=== PATIENT | female | born 1990 | race Caucasian/White ===

== ENCOUNTER 2017-12-16 12:17 | Inpatient (IN) | payer OTHER ==
--- NOTE | 2017-12-16 12:37 | EDPHY ---
HPI/HX/ROS/PE/MDM Narrative: CHIEF COMPLAINT: Psych evaluation HPI: The patient is a 27 y/o female with a history Major depressive disorder, rheumatoid arthritis, Bay's presenting to the emergency department for a psychiatric evaluation. She reports severe depression that has been worsening recently. Over the last few days she has developed suicidal ideation. She has no specific plan and no attempts made. She states that she is not currently under treatment for her Bay's thyroiditis, and is on stable doses of Humira and methotrexate for her rheumatoid arthritis. REVIEW OF SYSTEMS: Aside from elements discussed in the HPI, a comprehensive 10 system review of systems is otherwise negative. PMH: Major depressive disorder, rheumatoid arthritis, Bay's SOCIAL HISTORY: Denies alcohol or drug abuse. PHYSICAL EXAM: General: Patient is alert, in no acute distress. ENT: Eyes are normal to inspection. ENT inspection normal. Neck: Normal inspection. Full range of motion. Respiratory: No respiratory distress. Breath sounds normal bilaterally. Cardiovascular: Regular rate and rhythm. Strong peripheral pulses. Normal cap refill. Abdomen: The abdomen is nontender to palpation. There are no peritoneal signs. There are normal bowel sounds. Back: Normal to inspection. No tenderness to palpation. Skin: Normal color. No rash. Warm and dry. Extremities: Normal appearance. Full range of motion. Neuro: Oriented x3. Normal motor function. Normal sensory function. Psych: Tearful, pleasant. Admits to suicidal ideation. (Matthew Bro) ED Course: 1450: Patient is medically clear for psychiatric evaluation. I have signed the patient out to Dr. Lucero pending mental health evaluation. (Matthew Bro) MDM: 7:55 p.m. the patient has been evaluated by Mental Health and has been accepted at [address] [place] [address] Douglas. I have signed an M1 hold and will complete transfer paperwork. (Jose M Lucero) - Data Points Laboratory Results: Laboratory Results 12/16/17 13:13 12/16/17 13:13 Medications Given: Aspirin Buffered (Aspirin Ec) 81 mg PO DAILY [facility] Stop: 06/15/18 08:59 Last Admin: 12/17/17 09:13 Dose: 81 mg Cholecalciferol (Vitamin D) 2,000 units PO DAILY [facility]ON Stop: 06/15/18 08:59 Last Admin: 09/13/18 09:13 Dose: 2,000 units Hydroxyzine HCl (Hydroxyzine Hcl) 100 mg PO HS [facility] Stop: 06/14/18 23:44 Last Admin: 12/16/17 23:46 Dose: 100 mg Sertraline HCl (Zoloft) 100 mg PO DAILY [facility] Stop: 06/15/18 08:59 Last Admin: 12/17/17 09:13 Dose: 100 mg General Time Seen by Provider: 12/16/17 12:31 Initial Vital Signs: Initial Vital Signs Temperature (C) 36.8 C 12/16/17 12:24 Heart Rate 110 H 12/16/17 12:24 Respiratory Rate 18 12/16/17 12:24 Blood Pressure 130/89 H 12/16/17 12:24 O2 Sat (%) 95 12/16/17 12:24 O2 Delivery Mode Room Air Allergies/Adverse Reactions: No Known Allergies Allergy (Unverified 12/16/17 12:22) Home Medications: Medication Instructions Recorded Adalimumab [Humira] 40 mg INJ Q14D 12/16/17 Aspirin EC [Aspirin EC 81 mg (*)] 81 mg PO DAILY 12/16/17 Cholecalciferol Vit D3 [Vitamin D3 2,000 units PO DAILY 12/16/17 (*)] Dextroamphetamine/Amphetamine 30 mg PO DAILY 12/16/17 [Adderall Xr 30 mg Capsule] Kurvelo Control 1 ea PO DAILY 12/16/17 Methotrexate Sodium [Rheumatrex] 20 mg PO TH 12/16/17 Sertraline HCl [Zoloft 100mg (*)] 100 mg PO DAILY 12/16/17 hydrOXYzine HCL [Hydroxyzine HCl] 150 mg PO HS 12/16/17 Departure - Departure Disposition: [facility] IP Clinical Impression: Suicidal ideation Condition: Fair Report Scribed for: Matthew Bro Report Scribed by: Rita Willis Date of Report: 12/16/17 Time of Report: 12:34 Physician Review and Approval Statement: Portions of this note were transcribed by an ED scribe. I personally performed the history, physical exam, and medical decision making; and confirm the accuracy of the information in the transcribed note.
[2017-12-16 13:35] LABS: PLATELET COUNT 335 10^3/uL (150-400)
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
--- NOTE | 2017-12-16 22:26 | ASMTTCLDSP ---
TLC Discharge Disposition Disposition: Answers: Admit Disposition Notes: Notes: In consultation with [facility] ED physician, Jose M Lucero MD and [facility] on-call psychiatrist, Jacob Douglas MD, both concurred that pt appears to meet 27-65 criteria requiring psychiatric hospitalization as the patient appears to be an imminent risk of harm to self due to a mental illness condition. The patient was given the 3N prohibited belongings list while in the ED. Was patient given the Answers: Yes Inpatient Behavioral Health Prohibited Belongings List while in the ED? For inpatient Jacob Douglas MD admission, the following psychiatrist agreed to accept patient for admission to Behavioral Health ([facility]): Type of Hold: Answers: M1/72-hour Hold Hold initiated by: Answers: ED Physician Date Signed: 12/16/2017 09:57 PM Electronically Signed By:Gemma Jacobs
[2017-12-16] MEDS ORDERED: OLANZapine DISINTEGR 5 MG TAB PO PRN (23:32)
[2017-12-16] MEDS ORDERED: NICOTINE POLACRILEX 2 MG GUM B PRN (23:32)
[2017-12-16] MEDS ORDERED: LORazepam 0.5 MG TAB PO PRN (23:32)
[2017-12-16] MEDS ORDERED: MAGNESIUM HYDROXIDE 30 ML UDCUP PO PRN (23:32)
[2017-12-16] MEDS ORDERED: MAG HYDROX/AL HYDROX/SIMETH 30 ML UDCUP PO PRN (23:32)
[2017-12-16] MEDS ORDERED: ACETAMINOPHEN 325 MG TAB PO PRN (23:32)
[2017-12-16] MEDS ORDERED: MELATONIN 3 MG TAB PO PRN (23:38)
[2017-12-16] MEDS ORDERED: hydrOXYzine HCL 50 MG TAB PO SCH (23:45)
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
[2017-12-17] MEDS ORDERED: SERTRALINE HCL 100 MG TAB PO SCH (09:00)
[2017-12-17] MEDS: ASPIRIN EC 81 MG TAB PO SCH (09:13)
[2017-12-17] MEDS: CHOLECALCIFEROL VIT D3 2,000 UNITS TAB/CAP PO SCH (09:13)
--- NOTE | 2017-12-17 11:23 | PDMN ---
Medical Necessity Medical necessity: Pt meets inpt criteria per MD order and [facility] [place] [place] B-008, Major Depressive Disorder, Adult: Inpatient Care. 27 y/o w/major depressive disorder, recurrent, severe, w/suicidal ideation, on M1 hold due to risk of harm to self due to mental illness requiring psychiatric hospitalization.
[2017-12-17] MEDS: ARIPiprazole 5 MG TAB PO SCH (12:12)
[2017-12-17] MEDS: ADALIMUMAB 40 MG/0.8 ML INJ SC SCH ×2 (12:13→20:39)
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
--- NOTE | 2017-12-17 13:43 | ASMTCMCOM ---
CM Note CM Note Notes: CC called and left a detailed VM for client's Doctor/Therapist (Dr. Bahman Catalan) at [phone]; asking for a follow up appt for client late next week. Date Signed: 12/17/2017 01:27 PM Electronically Signed By:Darren Bowen
[2017-12-17] MEDS ORDERED: BACITRACIN OINTMENT 1 PACKET TP ONE (14:26)
--- NOTE | 2017-12-17 15:12 | BCON ---
INTERNAL MEDICINE CONSULTATION DATE OF CONSULTATION: 12/17/2017 REFERRING PHYSICIAN: Jacob Douglas MD REASON FOR REFERRAL: Medical clearance for inpatient behavioral health stay. HISTORY OF PRESENT ILLNESS: This patient came to the emergency department yesterday with severe depression, which had been worsening recently. She had developed suicidal ideation. She was evaluated by the mental health team and admitted for further psychiatric care. Currently, she reports feeling stiffness from her from rheumatoid arthritis. She reports she has been unable to take adalimumab for several weeks due to upper respiratory infection. Otherwise, she is without acute complaints. PAST MEDICAL HISTORY: 1. Depression. 2. Rheumatoid arthritis. 3. Bay's thyroiditis. PAST SURGICAL HISTORY: She has not had any surgeries. MEDICATIONS: Prior to admission: 1. Cholecalciferol 2000 units p.o. daily. 2. Aspirin 81 mg p.o. daily. 3. control pill. 4. Dextroamphetamine/amphetamine 30 mg p.o. daily. 5. Adalimumab 40 mg injection every 14 days. 6. Hydroxyzine 150 mg p.o. at bedtime. 7. Methotrexate 20 mg p.o. q. . 8. Sertraline 100 mg p.o. daily. ALLERGIES: There are no known drug allergies. SOCIAL HISTORY: She lives with her parents. She is nonsmoker and does not use alcohol. 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 She had the recent break-up of a relationship which precipitated her moving back in to her parent's house. FAMILY HISTORY: Noncontributory. REVIEW OF SYSTEMS: She reports her upper respiratory symptoms are improving, but she says she still has symptoms of seasonal allergies. She has joint stiffness, as mentioned previously. Otherwise, a 10-point review of systems is negative. PHYSICAL EXAM: VITAL SIGNS: Blood pressure is 109/63, heart rate is 74, respiratory rate is 14, oxygen saturation 96% on room air, temperature is 36.7 degrees centigrade. Her weight is 65.8 kg for a body mass index of 28.3. GENERAL: This is an overweight woman, appears her chronologic age, cooperative and in no acute distress. HEENT: Extraocular movements are intact. Pupils are equal, round, reactive to light. Mucous membranes are moist. Dentition is good condition. NECK: Supple. HEART: Regular rate and rhythm with no murmurs , rubs, or gallops. LUNGS: Clear to auscultation bilaterally. ABDOMEN: Benign. EXTREMITIES: There is no cyanosis, clubbing, or edema. There is no ulnar deviation at the MCP joints. There is no obvious joint swelling. NEUROLOGIC: She is alert and oriented x3. Cranial nerves 2-12 are grossly intact. There is no focal weakness. Sensation is intact and gait is within normal limits. LABORATORY STUDIES: CBC was completely normal. Serum chemistry revealed normal renal function and electrolytes. Liver function showed very mild elevation to ALT, likely of no clinical significance. Lipid panel was consistent with dyslipidemia with elevated cholesterol of 234, LDL was 159, HDL was 50. TSH was 1.11. Toxicology screen in the urine was non-negative for amphetamines, but was otherwise negative for substances of abuse. ASSESSMENT/RECOMMENDATIONS: 1. Rheumatoid arthritis overall has been quiescent. She has somewhat more disease activity currently, due to abstaining from her regular adalimumab treatment due to an upper respiratory infection. Advised continuing methotrexate as currently ordered. Resume adalimumab once she is completely cleared from any symptoms of infection. 2. Upper respiratory infection is resolving. 3. Seasonal allergies versus resolving URI symptoms. 4. Dyslipidemia. Based on her age and lack of significant comorbidities, there is no indication at present to start cholesterol-reducing medications. 5. Overweight. Consider avoiding medications which might promote further weight gain, especially with dyslipidemia. Advised patient on high-intensity interval training, which can both increase physical fitness and aerobic capacity , as well as decreasing rheumatoid arthritis disease activity. 6. Bay thyroiditis, with normal TSH. There is no intervention or further evaluation indicated at this point. I see no medical contraindications to this patient's continued stay on the inpatient behavioral health unit or to any psychiatric medications or procedures. Thank you very much for including me in the care of this patient and please do not hesitate to contact me or the hospitalist service should there be need for further medical evaluation. /[id number]/MODL MTDD
[2017-12-17] MEDS: GABAPENTIN 300 MG CAP PO SCH ×2 (15:46→20:33)
[2017-12-17] MEDS: traZODone 50 MG TAB PO SCH (20:34)
[2017-12-17] MEDS: ETHINYL ESTRADIOL PO SCH (20:37)
[2017-12-17] MEDS: LEVONORGESTREL PO SCH (20:37)
[2017-12-17] MEDS ORDERED: METHOTREXATE 2.5 MG TAB PO SCH (21:00)
[2017-12-18] MEDS: ARIPiprazole 5 MG TAB PO SCH (08:56)
[2017-12-18] MEDS: GABAPENTIN 300 MG CAP PO SCH ×3 (08:56→21:32)
[2017-12-18] MEDS: ASPIRIN EC 81 MG TAB PO SCH (08:56)
[2017-12-18] MEDS: CHOLECALCIFEROL VIT D3 2,000 UNITS TAB/CAP PO SCH (08:57)
[2017-12-18] MEDS ORDERED: SERTRALINE HCL 100 MG TAB PO SCH (09:00)
[2017-12-18] MEDS ORDERED: SERTRALINE HCL 50 MG TAB PO ONE (09:15)
[2017-12-18] MEDS: LEVONORGESTREL PO SCH (09:27)
[2017-12-18] MEDS: ETHINYL ESTRADIOL PO SCH (09:27)
--- NOTE | 2017-12-18 11:00 | SOAPPROG ---
SOAP Progress Note Assessment/Plan: Assessment: Borderline personality disorder, major depressive disorder with anxious distress , refractory. Slight improvement noted. (see subjective/objective note). Patient is not safe to discharge at this time as patient continues to exhibit signs of severe anxiety and depression, and express anxiety and depression symptoms. Patient requires continued inpatient care because of current severe anxiety and depression, and requires inpatient level of care to stabilize in order to no longer be a danger to himself/herself, gravely disabled due to mental illness. Patient could benefit from continued inpatient hospitalization for crisis stabilization, safety, and medication evaluation. Plan: (1) Psychotropic medications: After reviewing options, risks, and benefits patient agrees to continue current medications with following changes: Increase sertraline to 100 mg po QD. No other medication changes at this time as more time is needed to determine ongoing tolerability and efficacy. Plan is to continue to observe patient for response and side effects from medications, and ongoing monitoring and evaluation. (2) Review with patient informed consent and recommendations for psychotropic medication treatment listed below (3) Labs: no additional labs at this time (4) Therapy: continue milieu and group therapy (5) Further investigation including gathering information from patients relatives and review of past case records to inform treatment plan. (6) Safety/Wellness plan and follow-up outpatient appointments to be established prior to discharge. Next steps are for patient to meet with personal caregiver to plan a safe discharge plan and establish outpatient services for ongoing treatment. (7) Confer with inpatient treatment team regarding treatment plan. (8) Legal status: M1; patient agrees to voluntary when M1 expires (9) Consider discharge on Thursday if patient is in stable condition, safe, and has a safe discharge plan. PSYCHOTROPIC MEDICATION TREATMENT INFORMED CONSENT and RECOMMENDATIONS: Review nature of condition, diagnosis, and prognosis. Review nature and purpose of psychotropic medication treatment. Review type of psychotropic medications being ordered. Review risk and benefits of psychotropic medication treatment. Review probable length of time patient will need to take medications. Review risk and benefits of not undergoing psychotropic medication treatment. Review alternative treatments to psychotropic medications. Review psychotropic medications contraindications, drug-drug interactions, side effects, and importance of reporting any side effects to a psychiatric provider or nurse during inpatient hospitalization, and upon discharge to patients psychiatric outpatient provider, primary care provider, or other health weekend caregiver. Review importance of asking a nurse, psychiatric provider, or primary care provider any questions or problems concerning the psychotropic medications. Verify patient understands the information that has been provided, and understands, accepts, and agrees to psychotropic medications. Review patients safety plan and importance of patient to report to staff while hospitalized if patient is ever a danger to self/others, or unable to care for self, and upon discharge, the importance for patient to contact [facility] or [facility], or go to the nearest emergency room, if patient is ever a danger to self/others, or unable to care for self. Recommend that upon discharge patient establish medication management treatment with a psychiatric provider, establishes routine therapy appointments, and follow-up with primary care provider. Verify patient understands and agrees to these recommendations. 12/18/17 10:59 Subjective: Following up with patient for evaluation of depression, anxiety, and safety. Patient reports, "I would have slept okay, if I wasn't woken-up by another patient, I threw-up this morning because of my anxiety. I don't have any suicidal thoughts today though. I still feel extremely depressed. Can we go back up on the sertraline, I am worried that the other medications wont work fast enough if we stop the sertraline." Patient expresses the following psychiatric symptoms severe anxiety and depression. Patient reports taking medications as prescribed, and describes response to medications as poor. Patient requests increase in sertraline and agrees to 100 mg po QD, and agrees to continue current medications. Patient does not report undesirable side effects from the medications. Patient reports appetite as okay, and reports eating all meals. Patient describes getting 6 hours of sleep. Patient agrees to stay voluntary through with plan to discharge Thursday. Objective: Vital Signs Temp Pulse Resp BP Pulse Ox 37 C 84 16 110/63 96 12/18/17 06:00 12/18/17 06:00 12/18/17 06:00 12/18/17 06:00 12/18/17 06:00 NURSING REPORT: Consulted with nursing for update on patients progress in treatment. Nurses report patient is engaged in treatment, is attending groups, slept 9 hours, expresses the following psychiatric symptoms: severe anxiety and depression, exhibits the following psychiatric symptoms: anxiety and depression , is eating all meals, is attending to ADLs, is taking medications as prescribed with no report of side effects, with no s/s of EPS/akathisia, and denies SI/HI, denies A/V hallucinations, and denies delusions. MSE: The patient presents casually dressed and with good hygiene, and looks stated age. Patient is sitting, posture is upright, and position is relaxed. Patient appears awake, alert, and responds appropriately and reasonably during interview. Patient is engaged, relates well to interviewer, and emotional facial expression is sad/anxious appropriate to situation and changes appropriately with topic. Patient is cooperative, makes comfortable eye contact , and movements are voluntary, deliberate, coordinated, and smooth and even with no inappropriate movements. Patient makes laryngeal sounds effortlessly and shares conversation appropriately; pace of conversation is appropriate, and stream of talking is fluent; articulation is clear and understandable; word choice is effortless and appropriate for education level; completes sentences, occasionally pausing to think; rate and volume are appropriate for interview and setting. Patient reports mood as anxious and depressed. Patients affect is constricted and flat congruent with mood. Patient has linear and logical thinking, with no loose associations, tangential thought, thought blocking, concrete thinking, or any other signs of formal thought disorder. Patient denies suicidal and homicidal ideation, and denies hallucinations and delusions. Patient appears to be a reliable historian with sound judgement and good insight into current condition. Patient has no apparent dysfunction in recent or remote memory noted, and no evidence of gross cognitive dysfunction noted at any point during the interview. - Time Spent With Patient Time Spent With Patient: 30 minutes, met with patient individually and with patient and treatment team. - Pending Discharge Pending Discharge Within 24 Hours: No Pending Discharge Within 48 Hours: No ICD10 Worksheet Patient Problems: Problems Problem Status Onset Suicidal ideation Acute Borderline personality disorder Chronic Major depressive disorder, recurrent episode, severe with anxious distress Chronic
--- NOTE | 2017-12-18 11:52 | ASMTCMCOM ---
CM Note CM Note Notes: Pt. reported she "didn't sleep as well as I wanted". Pt. stated a male peer pt. accidentally walked into her room at night. Pt. stated she is "pretty anxious in general". Pt. stated the best way she deals with her anxiety is through distraction. Pt. stated she likes to draw, watch TV, play video games, listen to music, and do puzzles. Pt. reports not having an appetite, adding she forces herself to eat. Pt. stated she threw up this morning from her anxiety. Pt. rated her anxiety an 8/10 while in the hospital, adding her anxiety is a 10/10 at home. Pt. denied SI, HI, and AVH. Pt. stated she has paranoia about "feeling like when I get out of here people will think I'm crazy". Pt. presents as alert, anxious, staring eye contact, and with a mostly pleasant demeanor. Staff report pt. sleeping 9 hours and being medication compliant. Date Signed: 12/18/2017 11:43 AM Electronically Signed By:Alessia Hebert
[2017-12-18] MEDS: traZODone 50 MG TAB PO SCH (21:32)
[2017-12-18] MEDS ORDERED: diphenhydrAMINE 25 MG CAP PO ONE (21:48)
[2017-12-18] MEDS: diphenhydrAMINE 25 MG CAP PO PRN (22:15)
[2017-12-19] MEDS: ETHINYL ESTRADIOL PO SCH (08:33)
[2017-12-19] MEDS: ARIPiprazole 5 MG TAB PO SCH (08:33)
[2017-12-19] MEDS: LEVONORGESTREL PO SCH (08:33)
[2017-12-19] MEDS: CHOLECALCIFEROL VIT D3 2,000 UNITS TAB/CAP PO SCH (08:33)
[2017-12-19] MEDS: GABAPENTIN 300 MG CAP PO SCH ×3 (08:33→20:29)
[2017-12-19] MEDS: ASPIRIN EC 81 MG TAB PO SCH (08:33)
[2017-12-19] MEDS ORDERED: SERTRALINE HCL 100 MG TAB PO SCH (09:00)
[2017-12-19] MEDS: PSEUDOEPHEDRINE HCL 30 MG TAB PO PRN ×2 (09:30→17:35)
--- NOTE | 2017-12-19 13:46 | ASMTCMCOM ---
CM Note CM Note Notes: Pt. reports sleeping "not good at all", adding she needs more trazodone Pt. stated she kept waking up and wasn't able to sleep deeply. Pt. stated she currently feels sick and believes she has a cold. MD ordered medication. Pt. stated she is still forcing herself to eat, adding she ate more at breakfast today than her entire hospital stay so far. Pt. stated she doesn't feel her gabapentin dose is high enough. Pt. rated her anxiety an 8/10 today. Pt. stated "still feel anxious all the time". Pt. denied SI, HI, and AVH. Pt. reports having similar paranoia feelings as yesterday, adding she is "super worried I will get out of here and end up back in here". Pt. expressed interest in attending the [facility] DBT group, along with individual therapy. Pt. presents as alert, anxious, almost shaking, tearful, polite and with good eye contact. Staff report pt. sleeping 7.5 hours. Date Signed: 12/19/2017 01:45 PM Electronically Signed By:Alessia Hebert
--- NOTE | 2017-12-19 13:55 | SOAPPROG ---
SOAP Progress Note Assessment/Plan: Assessment: 27yo with MDD with anxious features, and Borderline personality d/o admitted on M-1 for depression and SI. This is first hospitalization. 12/19/17 16:34 staff report pt slept 7.5hr Pt reports feeling depressed, anxious, did not sleep well. asking for incr Trazodone. still feeling very easily emotional/tearful, states she knows some of her negative thoughts about herself are wrong but still gets emotional and feeling sorry for self, reports "abandonment issues" and expresses other insights into her coping and functioning, and her chronic low self esteem. Does state if she did not get hospitalized, she would have overdosed b/c felt very depressed and suicidal. Notes Fall and Winter times also increase her depression independently from her depressed baseline. Looking forward to starting DBT as outpatient to give her tools to manage her emotions. States Hydroxyzine was helpful for anxiety but not restarted this admission b/c QTc concerns. Agreeable to an EKG to check QTc. Also not feeling Gabapentin helpful, rather just a bit sedating. Liked effect of Adderall in past b/c helped with energy but understands concerns about this med and that this was not right med. Denies s/e to Abilify including any akathisia. Denies physical complaints. Reports being a spiritual person and wouldn't mind spiritual consult while here. Going through "mad at God stage". Attending groups, finds them helpful and talked about some skills she learned and insights gained. MSE: cooperative, good ec, nml speech, easily tearful and with depr/mildly anxious affect, congruent with stated mood. denies current SI, no thoughts to harm others. tp/tc- linear, goal directed with no AH/VH or other psychosis. i/j - seem intact. cognition intact. PLAN: incr zoloft to 150mg qam start tomorrow incr trazodone to 100mg qhs, with additional 50mg qhs prn if needed. if 150mg not helpful, may need alternative cont abilify 5mg qd for now. Reporting some mild URI sxs and congestion, requested benadryl last night, Dayquil today but sudafed on formulary. avoid sudafed at hs. monitor use check EKG, nonurgent spiritual/public health director consult at pt request wants to stay beyond Mon if her meds are not quite right, b/c doesn't want to end up back in hospital if d/c too soon. Objective: Vital Signs Temp Pulse Resp BP Pulse Ox 37 C 84 16 110/63 96 12/18/17 06:00 12/18/17 06:00 12/18/17 06:00 12/18/17 06:00 12/18/17 06:00 - Time Spent With Patient Time Spent With Patient: 35min - Pending Discharge Pending Discharge Within 24 Hours: No Pending Discharge Within 48 Hours: No ICD10 Worksheet Patient Problems: Problems Problem Status Onset Suicidal ideation Acute Borderline personality disorder Chronic Major depressive disorder, recurrent episode, severe with anxious distress Chronic
[2017-12-19] MEDS ORDERED: traZODone 100 MG TAB PO SCH (21:00)
[2017-12-20] MEDS: ETHINYL ESTRADIOL PO SCH (08:32)
[2017-12-20] MEDS: LEVONORGESTREL PO SCH (08:32)
[2017-12-20] MEDS: CHOLECALCIFEROL VIT D3 2,000 UNITS TAB/CAP PO SCH (08:33)
[2017-12-20] MEDS: GABAPENTIN 300 MG CAP PO SCH (08:34)
[2017-12-20] MEDS: ARIPiprazole 5 MG TAB PO SCH (08:34)
[2017-12-20] MEDS: ASPIRIN EC 81 MG TAB PO SCH (08:34)
[2017-12-20] MEDS: SERTRALINE HCL 100 MG TAB PO SCH (08:34)
[2017-12-20] MEDS: PSEUDOEPHEDRINE HCL 30 MG TAB PO PRN (08:46)
--- NOTE | 2017-12-20 13:07 | ASMTCMCOM ---
CM Note CM Note Notes: Pt. reports not feeling very good due to her cold. Pt. added she is also feeling anxious and she is not sure why. Pt. stated she is "not sleeping very good" due to her paranoia about someone coming into her room and hurting her at night. Pt. stated she woke up 7 times last night and toss and turned. Pt. stated the increase in trazodone "didn't do anything". Pt. reports possibly going back to a previous medication for anxiety and sleep. Pt. stated she didn't eat much, adding her stomach "feels full all the time". Pt. stated her gabapentin is no doing what it should, adding "I shouldn't be this anxious". Pt. stated she feel "discouraged" about her medications not being as effective as she would like. Pt. stated she may stay in the hospital until Thursday, adding "however long it take is how long it takes". Pt. denied SI, HI, and AVH. Pt. reports continued paranoia about returning home and not doing well and possibly needing to return to the hospital. Pt. stated she lives with her parents and her parents will manage her medications, just to be safe. Pt. stated she wants to attend the [facility] DBT group, and could do an intake on 12/23 or 12/24. Pt. presents as alert, anxious, shaking, somewhat pressured speech, groomed, and with good eye contact. Staff report pt. sleeping 7.5 hours. CC provided pt with DBT skills handout. Date Signed: 12/20/2017 01:07 PM Electronically Signed By:Alessia Hebert
--- NOTE | 2017-12-20 13:23 | SOAPPROG ---
SOAP Progress Note Assessment/Plan: Assessment: 27yo with MDD with anxious features, and Borderline personality d/o admitted on M-1 for depression and SI. This is first hospitalization. 12/19/17 16:34 staff report pt slept 7.5hr Pt reports feeling depressed, anxious, did not sleep well. asking for incr Trazodone. still feeling very easily emotional/tearful, states she knows some of her negative thoughts about herself are wrong but still gets emotional and feeling sorry for self, reports "abandonment issues" and expresses other insights into her coping and functioning, and her chronic low self esteem. Does state if she did not get hospitalized, she would have overdosed b/c felt very depressed and suicidal. Notes Fall and Winter times also increase her depression independently from her depressed baseline. Looking forward to starting DBT as outpatient to give her tools to manage her emotions. States Hydroxyzine was helpful for anxiety but not restarted this admission b/c QTc concerns. Agreeable to an EKG to check QTc. Also not feeling Gabapentin helpful, rather just a bit sedating. Liked effect of Adderall in past b/c helped with energy but understands concerns about this med and that this was not right med. Denies s/e to Abilify including any akathisia. Denies physical complaints. Reports being a spiritual person and wouldn't mind spiritual consult while here. Going through "mad at God stage". Attending groups, finds them helpful and talked about some skills she learned and insights gained. MSE: cooperative, good ec, nml speech, easily tearful and with depr/mildly anxious affect, congruent with stated mood. denies current SI, no thoughts to harm others. tp/tc- linear, goal directed with no AH/VH or other psychosis. i/j - seem intact. cognition intact. PLAN: incr zoloft to 150mg qam start tomorrow incr trazodone to 100mg qhs, with additional 50mg qhs prn if needed. if 150mg not helpful, may need alternative cont abilify 5mg qd for now. Reporting some mild URI sxs and congestion, requested benadryl last night, Dayquil today but sudafed on formulary. avoid sudafed at hs. monitor use check EKG, nonurgent spiritual/plant technician consult at pt request wants to stay beyond Mon if her meds are not quite right, b/c doesn't want to end up back in hospital if d/c too soon. 12/20/17 13:05 slept 7.5hr per staff. plans to give meds to her parents to monitor for safety after d/c. lives with parents. still with trouble sleeping, frequent awakenings last night she reports. stated due to hx of trauma, has some anxiety at night and hypervigilance, especially recalling male patient that accidentally walked into her room earlier in week. using prn Sudafed for sinus congestion. reminded this can cause some anxiety. pt reports it makes her a little tired. t/a feeling still a bit anxious physically. would like to try incr Gabapentin before giving up on it for anxiety. still thinks Hydroxyzine worked better. agrees to try incr Trazodone also before giving up on this for sleep very motivated for DBT group and outpatient therapy. has started reading DBT handouts provided to her by cc MSE: casually dressed, good ec, nml speech, cooperative bx, mild sinus congestion noted. nml psychomotor activity, did not appear fidgety although reported this. mood "better today" and more hopeful, still with some anxiety. affect constricted. no current SI, no psychosis. linear thoughts. i/j seem intact. PLAN: cont zoloft 150mg incr trazodone to 150mg qhs, add 50mg hs prn cont abilify 5mg qd spiritual consult- plant technician here today trial gabapentin incr to 600mg tid EKG tomorrow, to check QTc Objective: Vital Signs Temp Pulse Resp BP Pulse Ox 36.7 C 80 14 109/54 L 97 12/20/17 06:00 12/20/17 06:00 12/20/17 06:00 12/20/17 06:00 12/20/17 06:00 - Time Spent With Patient Time Spent With Patient: 20min - Pending Discharge Pending Discharge Within 24 Hours: No Pending Discharge Within 48 Hours: No ICD10 Worksheet Patient Problems: Problems Problem Status Onset Suicidal ideation Acute Borderline personality disorder Chronic Major depressive disorder, recurrent episode, severe with anxious distress Chronic
[2017-12-20] MEDS ORDERED: traZODone 50 MG TAB PO PRN ×2 (13:24→19:37)
[2017-12-20] MEDS ORDERED: GABAPENTIN 300 MG CAP PO ONE (14:00)
--- NOTE | 2017-12-20 18:42 | SOAPPROG ---
SOAP Progress Note Assessment/Plan: Assessment: 27yo with MDD with anxious features, and Borderline personality d/o admitted on M-1 for depression and SI. This is first hospitalization. 12/19/17 16:34 staff report pt slept 7.5hr Pt reports feeling depressed, anxious, did not sleep well. asking for incr Trazodone. still feeling very easily emotional/tearful, states she knows some of her negative thoughts about herself are wrong but still gets emotional and feeling sorry for self, reports "abandonment issues" and expresses other insights into her coping and functioning, and her chronic low self esteem. Does state if she did not get hospitalized, she would have overdosed b/c felt very depressed and suicidal. Notes Fall and Winter times also increase her depression independently from her depressed baseline. Looking forward to starting DBT as outpatient to give her tools to manage her emotions. States Hydroxyzine was helpful for anxiety but not restarted this admission b/c QTc concerns. Agreeable to an EKG to check QTc. Also not feeling Gabapentin helpful, rather just a bit sedating. Liked effect of Adderall in past b/c helped with energy but understands concerns about this med and that this was not right med. Denies s/e to Abilify including any akathisia. Denies physical complaints. Reports being a spiritual person and wouldn't mind spiritual consult while here. Going through "mad at God stage". Attending groups, finds them helpful and talked about some skills she learned and insights gained. MSE: cooperative, good ec, nml speech, easily tearful and with depr/mildly anxious affect, congruent with stated mood. denies current SI, no thoughts to harm others. tp/tc- linear, goal directed with no AH/VH or other psychosis. i/j - seem intact. cognition intact. PLAN: incr zoloft to 150mg qam start tomorrow incr trazodone to 100mg qhs, with additional 50mg qhs prn if needed. if 150mg not helpful, may need alternative cont abilify 5mg qd for now. Reporting some mild URI sxs and congestion, requested benadryl last night, Dayquil today but sudafed on formulary. avoid sudafed at hs. monitor use check EKG, nonurgent spiritual/refinery operator alkylation consult at pt request wants to stay beyond Mon if her meds are not quite right, b/c doesn't want to end up back in hospital if d/c too soon. 12/20/17 13:05 slept 7.5hr per staff. plans to give meds to her parents to monitor for safety after d/c. lives with parents. still with trouble sleeping, frequent awakenings last night she reports. stated due to hx of trauma, has some anxiety at night and hypervigilance, especially recalling male patient that accidentally walked into her room earlier in week. using prn Sudafed for sinus congestion. reminded this can cause some anxiety. pt reports it makes her a little tired. t/a feeling still a bit anxious physically. would like to try incr Gabapentin before giving up on it for anxiety. still thinks Hydroxyzine worked better. agrees to try incr Trazodone also before giving up on this for sleep very motivated for DBT group and outpatient therapy. has started reading DBT handouts provided to her by cc MSE: casually dressed, good ec, nml speech, cooperative bx, mild sinus congestion noted. nml psychomotor activity, did not appear fidgety although reported this. mood "better today" and more hopeful, still with some anxiety. affect constricted. no current SI, no psychosis. linear thoughts. i/j seem intact. PLAN: cont zoloft 150mg incr trazodone to 150mg qhs, add 50mg hs prn cont abilify 5mg qd spiritual consult- refinery operator alkylation here today trial gabapentin incr to 600mg tid EKG tomorrow, to check QTc 12/20/17 18:42 Did not like effect of increased Gabapentin. Also noting no benefit with increased Trazodone to 100mg, and would like to go back on Hydroxyzine for anxiety, but noted concerns of QTc incr expressed to her upon admission. Since Trazodone, Zoloft and Abilify all can cause incr QTc risk, and with no benefit to Trazodone, would rather opt to incr Melatonin, and d/c Trazodone Objective: Vital Signs Temp Pulse Resp BP Pulse Ox 36.7 C 80 14 109/54 L 97 12/20/17 06:00 12/20/17 06:00 12/20/17 06:00 12/20/17 06:00 12/20/17 06:00 ICD10 Worksheet Patient Problems: Problems Problem Status Onset Suicidal ideation Acute Borderline personality disorder Chronic Major depressive disorder, recurrent episode, severe with anxious distress Chronic
[2017-12-20] MEDS ORDERED: PROPRANOLOL HCL 10 MG TAB ONE (19:44)
[2017-12-20] MEDS: PROPRANOLOL HCL 10 MG TAB PO PRN (19:53)
[2017-12-20] MEDS ORDERED: traZODone 100 MG TAB PO SCH ×2 (21:00)
[2017-12-20] MEDS ORDERED: MELATONIN 3 MG TAB PO SCH (21:00)
[2017-12-20] MEDS: diphenhydrAMINE 25 MG CAP PO PRN (21:48)
[2017-12-21] MEDS: ASPIRIN EC 81 MG TAB PO SCH (08:40)
[2017-12-21] MEDS: ARIPiprazole 5 MG TAB PO SCH (08:40)
[2017-12-21] MEDS: CHOLECALCIFEROL VIT D3 2,000 UNITS TAB/CAP PO SCH (08:40)
[2017-12-21] MEDS: ETHINYL ESTRADIOL PO SCH (08:41)
[2017-12-21] MEDS: SERTRALINE HCL 100 MG TAB PO SCH (08:41)
[2017-12-21] MEDS: LEVONORGESTREL PO SCH (08:41)
[2017-12-21] MEDS: PROPRANOLOL HCL 10 MG TAB PO PRN (08:49)
[2017-12-21 08:58] VITALS: BP 114/76
--- NOTE | 2017-12-21 11:51 | BDS ---
REASON FOR ADMISSION: From the ED note dated 12/16/2017, patient presented to the ED with severe depression that has been worsening recently. Patient has developed suicidal ideation over the past few days. Patient reported no specific plan and no attempts were made. Patient was admitted involuntarily on an M1 hold due to being a danger to self. Patient was admitted for safety, crisis stabilization, and medication management. ADMITTING DIAGNOSES: Borderline personality disorder; major depressive disorder , severe, with anxious distress. ADMISSION PHYSICAL EXAM: Patient was seen by Dr. Miranda on 12/17/2017, for an internal medicine consultation for medical clearance for inpatient behavioral health stay. Dr. Miranda reported he saw no medical contraindications to the patient's continued stay on the inpatient behavioral health unit or to any psychiatric medications or procedures. For further details, please refer to Dr. Miranda's note dated 12/17/2017. ADMISSION LABS: CBC was completely normal. Serum chemistry revealed normal renal function and electrolytes. Liver function showed very mild elevation of ALT, likely of no clinical significance. Lipid panel was consistent with dyslipidemia with elevated cholesterol of 234. LDL was 159 and HDL was 50. TSH was 1.11. Toxicology screen in the urine was non-negative for amphetamines , but was otherwise negative for substances of abuse. A1c on 12/17/2017, was within normal limits at 5.2. MAJOR PROCEDURES OR TESTS: EKG: Qtc Int: 437 ms. Results in note dated . HOSPITAL COURSE: The most prominent symptoms and behaviors while the patient was here were moderate anxiety and depression, and mood instability related to borderline personality disorder. Treatment modalities utilized were milieu and group therapy. Zoloft 100 mg was continued and was titrated to 150 mg p.o. q.h.s. to target depression and anxiety symptoms, and was tolerated with no report of side effects, and with good response. Trazodone 50 mg p.o. q.h.s. was started and titrated to 150 mg p.o. q.h.s., and was tolerated with no report of side effects, and with good response. Trazodone was started to target insomnia related to depression and anxiety. Gabapentin 300 mg p.o. t.i.d. was started for anxiety. This medication was discontinued by Dr. Moon over the weekend as patient reported feeling increased anxiety and also feeling sedated from the gabapentin. Dr. Moon started propranolol 10 mg p.o. t.i.d. for anxiety. This medication was tolerated with no report of side effects, and with good response. Abilify 5 mg was started to target mood symptoms, and was tolerated with no report of side effects, and with good response. Patient has improved considerably with no signs of psychiatric symptoms and no psychiatric symptoms expressed at discharge. The patient reports she has improved since admission, states to be in stable condition, feels safe to discharge, and she contracts for safety. Patient's response to treatment was good. There were no adverse or unexpected results of treatment. The patient was safe throughout her stay, active in treatment, attended and engaged in groups, and was appropriate with staff and other patients. Treatment team met with patient prior to discharge during treatment planning meeting to assess safety to discharge and review discharge plan. The treatment team consensus is the patient is in stable condition and is safe to discharge today. CONDITION AT DISCHARGE: Patient is in stable condition and is no longer a danger to self or others, and is not gravely disabled due to mental illness. Patient is no longer in need of inpatient level of care, and can be safely and effectively treated within the community. The patients level of risk at time of discharge is low. MSE: The patient is casually dressed and with good hygiene , and looks stated age. Patient is sitting, posture is upright, and position is relaxed. Patient appears awake, alert, and responds appropriately and reasonably during interview. Patient is engaged, relates well to interviewer, and emotional facial expression is appropriate to situation and changes appropriately with topic. Patient is cooperative, makes comfortable eye contact , and movements are voluntary, deliberate, coordinated, and smooth and even with no inappropriate movements. Patient makes laryngeal sounds effortlessly and shares conversation appropriately; pace of conversation is appropriate, and stream of talking is fluent; articulation is clear and understandable; word choice is effortless and appropriate for education level; completes sentences, occasionally pausing to think; rate and volume are appropriate for interview and setting. Patient reports mood as euthymic. Patients affect is stable with full variable range, congruent with mood, and appropriate to speech and circumstances. Patient has linear and logical thinking, with no loose associations, tangential thought, thought blocking, concrete thinking, or any other signs of formal thought disorder. Patient denies suicidal and homicidal ideation, and denies hallucinations and delusions. Patient appears to be a reliable historian with sound judgement and good insight into current condition. Patient has no apparent dysfunction in recent or remote memory noted , and no evidence of gross cognitive dysfunction noted at any point during the interview. DISCHARGE DIAGNOSES: Borderline personality disorder; major depressive disorder , severe, with anxious distress. CURRENT MEDICATIONS: After reviewing options risks and benefits, the patient requests prescriptions for the following medications and prescriptions were written for 30 days at time of discharge for the following: Abilify 5 mg p.o. daily, trazodone 150 mg p.o. q.h.s., and sertraline 150 mg p.o. daily and propranolol 10 mg p.o. t.i.d. p.r.n. for anxiety. DISPOSITION: Patient left hospital independently and voluntarily with her father after a family meeting with her father. FOLLOWUP: nurse coordinator reports the appropriate outpatient follow-up services have been established and outpatient appointments have been scheduled. The patient received written instructions with times and dates of outpatient follow-up appointments. The following follow-up recommendations were provided to the patient at discharge: Continue psychotropic medications as prescribed and attend appointments as scheduled. Report any side effects to a psychiatric outpatient provider, a primary care provider, or other health personal care home administrator. Address any questions or problems concerning the psychotropic medications with a psychiatric outpatient provider, a primary care provider, or other health personal care home administrator. Contact [facility] or [facility], or go to the nearest emergency room, if you are ever a danger to yourself/others, or unable to care for yourself. As soon as possible, establish a routine medication management treatment with a psychiatric provider, establish routine therapy appointments, and follow-up with a primary care provider. LEGAL COURSE: Patient was admitted on an M1 hold for involuntary inpatient psychiatric hospitalization. Patient became voluntary during her stay. Patient discharged today independently and voluntarily. ATTITUDE AT TIME OF DISCHARGE: The patients attitude was positive at time of discharge, and patient reports looking forward to discharging today. The patient reports she feels safe to discharge, is no longer a danger to herself or others, is in stable condition, and contracts for safety. Patient states she will continue medications as prescribed, and establish medication management treatment with an outpatient provider after discharge. Patient reports she understands the information that has been provided to her, and she understands, accepts, and agrees to psychotropic medications. Patient describes internal protective factors as the coping skills she has learned while hospitalized here, and she plans to continue to practice these coping skills after discharge. FAMILY MEETING: This MANNEQUIN MOUNTER met with patient, patient's mother and father, and respiratory care faculty for family meeting prior to patient discharging to assess patient's safety to discharge and review discharge plan and medications. Patient's parents agree patient is safe to discharge and has a safe discharge plan. LABS AND STUDIES: There were no pending labs or studies at time. ADVANCED DIRECTIVES: There were no advance directives on file, and the patient was full code during this hospitalization. The following psychotropic medication treatment informed consent and recommendations were provided to the patient at time of discharge. Patient reports she understands, accepts, and agrees to the information that has been provided. PSYCHOTROPIC MEDICATION TREATMENT INFORMED CONSENT and RECOMMENDATIONS: Review nature of condition, diagnosis, and prognosis. Review nature and purpose of psychotropic medication treatment. Review type of psychotropic medications being prescribed. Review risk and benefits of psychotropic medication treatment. Review probable length of time will need to take medications. Review risk and benefits of not undergoing psychotropic medication treatment. Review alternative treatments to psychotropic medications. Review psychotropic medications contraindications, side effects, and importance of reporting any side effects to a psychiatric provider, primary care provider, or other health personal care home administrator. Review importance of her asking a psychiatric provider or primary care provider any questions or problems concerning the psychotropic medications. Review importance of reporting to a psychiatric provider, primary care provider, or other health personal care home administrator if she plans to or becomes . Review safety plan and the importance to contact [facility] or [facility] , or go to the nearest emergency room, if ever a danger to yourself/others, or unable to care for yourself. Recommend upon discharge to establish routine medication management treatment with a psychiatric provider, establish routine therapy appointments, and follow-up with a primary care provider. Verify patient understands, accepts, and agrees to the information that has been provided. /[id number]/MODL MTDD
--- NOTE | 2017-12-21 12:09 | ASMTBHDC ---
Notes Note: Notes: CC was able to confirm client's follow up appts: Follow up with: Dr. Luigi Islas [address] [place] [address] Next Appt: December (12/22/17) at 11:20am with Huong Horner [facility] [address] [place] [address] Appt: Intake appointment with Gemma 12/29/17 at 12:00pm DBT Group: Meets 3 times a week from 9:00am to 12:00pm for a [address] Bahman Catalan (Psychiatrist) [address], [place] [address] Next Appt: December 24 (12/24/17) at 6:15am with Dr. Catalan. Please fax DC summary to Dr. Catalan Referrals: Dr. Terrence Woods [address] [facility] [facility] [address] [place] [address] Accepting new patients, but no availablity until March Dr. Enzo Coats [address] [facility] [address] [place] [address] Nannette Jensen - Psycotherapy Date Signed: 12/21/2017 12:08 PM Electronically Signed By:Darren Bowen
--- NOTE | 2017-12-21 16:52 | CPEKG ---
Test Reason : routine, check baseline QTc on current meds Blood Pressure : / mmHG Vent. Rate : 081 BPM Atrial Rate : 082 BPM P-R Int : 152 ms QRS Dur : 078 ms QT Int : 376 ms P-R-T Axes : 051 058 034 degrees QTc Int : 437 ms SINUS RHYTHM Confirmed by William Moon ([id number]) on 12/21/2017 4:51:32 PM Referred By: Confirmed By:William Moon
== END 2017-12-21 12:33 | disposition home or self-care (01) | DRG 885 ==
LOC: BBEH 22:16
PROVIDERS: ADMIT Psychiatry & Neurology Psychiatry; ATTEND Psychiatry & Neurology Psychiatry
DX: F32.2 Major depressive disorder, single episode, severe without psychotic features (principal); F60.3 Borderline personality disorder; F41.9 Anxiety disorder, unspecified; M06.9 Rheumatoid arthritis, unspecified; E06.3 Autoimmune thyroiditis; E78.5 Hyperlipidemia, unspecified; J06.9 Acute upper respiratory infection, unspecified
CPT/HCPCS: 80305